=== PATIENT | male | born 1995 | race Hispanic/Latino ===

== ENCOUNTER 2018-08-09 08:36 | Emergency (ER) | payer OTHER ==
[~2018-08-09] VITALS: Ht 182.9 cm; Wt 78.2 kg
[2018-08-09 08:37] VITALS: BP 116/62
[2018-08-09] MEDS ORDERED: IBUP-1114 PO (08:42)
[2018-08-09] MEDS ORDERED: IBUPROFEN 600 MG TAB PO ONE (09:00)
[2018-08-09] MEDS ORDERED: CYCLOBENZAPRINE 10 MG TAB PO ONE (09:00)
[2018-08-09] MEDS ORDERED: CYCL10TA PO (09:28)
== END 2018-08-09 09:48 | disposition home or self-care (01) ==
LOC: M ED 08:36
DX: S39.012A Strain of muscle, fascia and tendon of lower back, initial encounter (principal); X50.0XXA Overexertion from strenuous movement or load, initial encounter; Y92.89 Other specified places as the place of occurrence of the external cause; Y99.1 Military activity; M54.5 Low back pain; G89.29 Other chronic pain; Z79.1 Long term (current) use of non-steroidal anti-inflammatories (NSAID); Z87.828 Personal history of other (healed) physical injury and trauma